=== PATIENT | male | born 2005 | race Caucasian/White ===

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

== ENCOUNTER 2023-01-21 10:34 | Outpatient (AMB) | payer BC, SELFPAY ==
--- NOTE | 2023-01-21 10:38 | A.OFFVISP_ITS ---
Intake Vital Signs 01/21/23 10:43 Height 5 ft 10 in Height percentile 75 Weight 170 lb 2 oz Weight percentile 75 Measurement Type Standing Scale BMI 24.4 BMI percentile 75 Temp 99.0 F Temp Source Temporal Artery Scan Pulse 74 Pulse Source Pulse Oximeter BP 112/64 Blood Pressure Source Manual Cuff/Palpation Position Sitting Pulse Oximetry (%) 99 Pediatric Intake Visit Reasons: [facility] 17 year male Allergies bee venom protein (honey bee) Allergy (Unknown, Verified 01/21/23 10:39) Rash Medication List - Last Reconciled 01/21/23 by Kavya Lopez PA-C albuterol sulfate 90 mcg/actuation 2 puffs inhalation Q4H PRN epinephrine 0.3 mg (0.3 mL) IM Q15M PRN fluticasone propion-salmeterol 500-50 mcg/dose 1 inh inhalation BID montelukast 10 mg PO DAILY HPI [facility] 18-21 Year Male Spent the past year in [place] and during that time felt as though he did not need his Symbicort. Asthma was not problematic. As he plans to be very active in the upcoming [place] in this [place], will refill the Symbicort. He will monitor sy mptoms to see if he feels as though he needs it. Nutrition Dietary habits: Reports well-balanced diet, daily servings of fruits and vegetab les and daily servings of milk/calcium Exercise Sports and activities: Reports plays team sports (soccer, notes appropriate exercise tolerance.) and watches <2 hours of screen time daily Genitourinary Bowel movements: normal Urine output: normal Elimination problems: none Dental Dental care: Reports receives dental care, brushes Brushes: daily and dental care advice given Behavioral Behavior: normal peer interactions Mental health: normal mood Educational/Employment Will be attending [employer] in the fall and studying engineering. Sexual Reviewed safe sex practices and healthy relationships. Sleep Sleep location: 4-7 years: own bed Sleep problems: No (7-8 hours nightly, discussed sleep hygiene.) Safety Car safety: well child 16-17 years: seat belt (has his license, reviewed distracted driving precautions.) Anticipatory Guidance Anticipatory guidance: well rounded diet, sun safety, dental care and sleep/bedtime routine [facility] Medical History (Updated 01/27/23 @ 09:27 by Kavya Lopez PA-C) Acne Eczema Mononucleosis Surgical History (Updated 01/21/23 @ 10:44 by AMINAH Infante) No pertinent past surgical history Family History (Updated 01/21/23 @ 11:45 by AMINAH Infante) Mother No problems noted. Father No problems noted. Sister Depression Anxiety Maternal Grandfather Alcohol abuse Social History Household Members: Family Cognitive needs: No Hearing needs: No Vision needs: No Questionnaire CRAFFT Screening Tool PART A: In the PAST 12 MONTHS, did you: Drink any alcohol (more than few sips)? (Do not count sips of alcohol taken during family or congregational events.): No Smoke any marijuana or hashish?: No Use anything else to get high? (includes illegal drugs, over the counter/prescription drugs, or things that you sniff/alford?): No PART B: If answered YES to ANY above: Have you ever been in a CAR driven by someone (including yourself) who was high or had been using alcohol or drugs?: No Do you ever use alcohol or drugs to RELAX, feel better about yourself, or fit in?: No Do you ever use alcohol or drugs while you are by yourself, or ALONE?: No Do you ever FORGET things while using alcohol or drugs?: No Do your FAMILY or FRIENDS ever tell you that you should cut down on your drinking or drug use?: No Have you ever gotten into TROUBLE while you were using alcohol or drugs?: No CRAFFT Assessment Charge Crafft: CRAFFT 03309 PHQ-9 Over the last 2 weeks, how often have you been bothered by any of the following problems? Depression Screening Interpretation: Negative Source: Developed by Drs. Lukasz Oseguera, America Lopez, Yaniv Castillo and colleagues, with an educational carloz from [employer]. Thrive Questionnaire Date Thrive assessed: 01/21/23 I am a: Parent/Caregiver What is your living situation today?: I have a steady place to live Within the past 12 months, did the food you bought not last and you didn't have the money to get more?: Never true Within the past 12 months, did you worry whether your food would run out before you got money to buy more?: Never true Do you have trouble paying for medicines?: No Do you have trouble getting transportation to medical appointments?: No Do you have trouble paying your heating and electricity bill?: No Do you have trouble taking care of your child, family member or friend?: No Do you have trouble with day-to-day activities such as bathing, preparing meals, shopping, managing finances, etc.?: No Are you currently unemployed and looking for a job?: No Are you interested in more education?: No BERTO-7 AMB Questionnaire BERTO-7 Date BERTO - 7 assessed: 01/21/23 Feeling nervous, anxious, or on edge: 0 = Not at all Not being able to stop or control worryin = Not at all Worrying too much about different things: 1 = Several days Trouble relaxin = Not at all Being so restless that it is hard to sit still: 0 = Not at all Becoming easily annoyed or irritable: 1 = Several days Feeling afraid as if something awful might happen: 0 = Not at all Total BERTO-7 score (0-4 normal; 5-9 mild; 10-14 moderate; 15-21 severe): 2 Source: Developed by Drs. Lukasz Oseguera, America Lopez, Yaniv Castillo and colleagues, with an educational carloz from [employer]. BERTO-7 Assessment Billing BERTO-7 Assessment Tool: BERTO-7 Assessment 11834 PHQ-9: Modified for Teens Feeling down, depressed, irritable or hopeless?: Not at all Little interest or pleasure in doing things?: Not at all Trouble falling asleep, staying asleep, or sleeping too much?: Not at all Poor appetite, weight loss or overeating?: Not at all Feeling tired, or having little energy?: Several Days Feeling bad about yourself-or feeling that you are a failure, or that you let yourself/your family down?: Not at all Trouble concentrating on things like school work, reading, or watching TV?: Not at all Moving/speaking so slowly that other people have noticed? Or the opposite-being so fidgety that you were moving more than usual?: Not at all Thoughts that you would be better off , or of hurting yourself in some way?: Not at all In the past year have you felt depressed or sad most days, even if you felt okay sometimes?: No How difficult have these problems made it for you to do your work, take care of things at home, or get along with other?: Not difficult at all Has there been a time in the past month when you have had serious thoughts about ending your life?: No Have you ever, in your entire life, tried to kill yourself or made a suicide attempt?: No Score: 1 Depression Screening Interpretation: Negative PHQ Assessment Billing PHQ Assessment Tool: PHQ Assessment 27930 Review of Systems Const All systems reviewed & are unremarkable except as noted in HPI and below PE 13-21 years Constitutional General: alert, awake and active Nutritional appearance: well nourished [facility] Head: Reports normal to inspection, normocephalic and atraumatic Ears: Reports external ears normal, TMs normal bilaterally, EAC's normal and external ears abnormal Nose: Reports external nose normal, nares normal, no nasal polyps and no nasal congestion or rhinorrhea Mouth: Reports palate normal, moist mucous membranes and oral mucosa normal Teeth: Reports teeth present and dentition normal Throat: Reports posterior oropharynx normal, uvula midline and tonsils normal Eyes Eyes: Reports appearance normal, no edema, no erythema and no discharge Conjunctivae: Reports conjunctivae normal Pupils: Reports PERRL EOM: Reports EOM intact bilaterally Neck Appearance: Reports normal appearance and FROM Lymphatic: Reports no lymphadenopathy noted Resp Effort & Inspection: Reports normal respiratory effort and chest with normal shape and expansion Auscultation: Reports clear to auscultation bilaterally and good air movement in all lung burk Cardio Rate: Reports regular rate Rhythm: Reports regular rhythm Heart sounds: Reports S1 normal and S2 normal GI Inspection: Reports normal to inspection Palpation: Reports soft, non-tender, no hepatomegaly, no splenomegaly and no masses Musc Thoracic/Lumbar Spine: Reports thoracic and lumbar spine normal to inspection Extremities: Reports moves all extremities equally, range of motion normal and normal gait Skin General: Reports no rashes or lesions noted and well perfused Neuro General: Reports oriented and normal affect Motor Exam: Reports normal strength and tone Assessment & Plan Assessment & Plan (1) Mild persistent asthma: Code(s): J45.30 - Mild persistent asthma, uncomplicated Plan: Symbicort refilled, he states he has singulair at home, will call if a refill is needed. F/up in the next 3-4 months to review asthma symptoms, sooner if he feels symptoms are worsening and not well controlled with Symbicort. Reviewed appropriate administration of all medications, he is quite familiar with these. 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 (3) Encounter for well adult exam without abnormal findings: Code(s): Z00.00 - Encounter for general adult medical examination without abnormal findings Orders: Orders Sickle Cell Scr 01/21/23 Z13.0 - Encounter for screening for diseases of the blood and blood-forming organs and certain disorders involving the immune mechanism ECG 12 lead EKG 01/21/23 Z02.5 - Encounter for examination for participation in sport Medications: New budesonide-formoterol 80-4.5 mcg/actuation (Symbicort) 1 inh inhalation BID 10.2 grams 6RF J45.30 - Mild persistent asthma, uncomplicated Refilled albuterol sulfate 90 mcg/actuation 2 puffs inhalation Q4H PRN 8.5 grams 2RF wheezing Discontinued fluticasone propion-salmeterol 500-50 mcg/dose Discontinued Reason: Patient no longer taking 1 inh inhalation BID 60 ea 11RF Coding Level of Care Code Est Pt Prev Care 18-39y(65988) Diagnoses Mild persistent asthma J45.30 Bee sting allergy Z91.030 Encounter for well adult exam without abnormal findings Z00.00 Additional Codes CRAFFT Assessment Charge - Crafft: CRAFFT 30547 ([id number]) BERTO-7 Assessment Billing - BERTO-7 Assessment Tool: BERTO-7 Assessment 47841 ([id number]) PHQ Assessment Billing - PHQ Assessment Tool: PHQ Assessment 23163 ([id number])
[2023-01-21 10:43] VITALS: BP 112/64; PULSE 74; TEMP 37.2; O2SAT 99; BMI 24.4
== END 2023-01-21 11:01 | disposition home or self-care (01) ==
LOC: HO.HMGP 10:34
PROVIDERS: PCP Pediatrics; Visit Provider Physician Assistant
DX: J45.30 Mild persistent asthma, uncomplicated (principal); Z91.030 Bee allergy status; Z00.00 Encounter for general adult medical examination without abnormal findings; Z13.30 Encounter for screening examination for mental health and behavioral disorders, unspecified
CPT/HCPCS: 96127; 96160; 99395

== ENCOUNTER 2023-01-21 11:06 | Outpatient (REF) | payer BC, SELFPAY ==
[2023-01-21 12:07] LABS: Sickle Cell Scr NEGATIVE (NEGATIVE)
== END 2023-01-21 11:07 | disposition home or self-care (01) ==
LOC: HO.LAB 11:06
PROVIDERS: Visit Provider Physician Assistant
DX: Z02.5 Encounter for examination for participation in sport (principal); Z13.0 Encounter for screening for diseases of the blood and blood-forming organs and certain disorders involving the immune mechanism
CPT/HCPCS: 36415; 85660; 93005

== ENCOUNTER 2023-02-08 15:10 | Outpatient (AMB) | payer BC, SELFPAY ==
--- NOTE | 2023-02-08 15:10 | AM.OFFVISNUR ---
Intake Intake Visit Reasons: Men B Allergies bee venom protein (honey bee) Allergy (Unknown, Verified 01/21/23 10:39) Rash Immunizations Svetlana Performing Provider: Kavya Lopez PA-C Administered by: Ally Downing RN on 02/08/23 15:11 Dose Route Admin Location Lot Number Expiration Date NDC Denial Management Representative 0.5 mL IM Left Deltoid [id number] 11/13/23 8250-7743-81 Piqniq/Sliced Apples VIS Given Date VIS Provided VIS Publication Date 02/08/23 Single Vaccine 21 Eligibility Eligibility Date Funding Source [place] [facility] [place] 02/08/23 Private Coding Diagnoses Assessment & Plan Assessment & Plan Orders: Orders Meningococcal B Immunization Today Z23 - Encounter for immunization
== END 2023-02-08 15:34 | disposition home or self-care (01) ==
LOC: HO.HMGP 15:10
PROVIDERS: PCP Physician Assistant; Visit Provider Physician Assistant
DX: Z23 Encounter for immunization (principal)
CPT/HCPCS: 90471; 90621